=== PATIENT | male | born 1980 | race Caucasian/White ===

== ENCOUNTER 2017-03-07 16:12 | Emergency (ER) | payer OTHER ==
[2017-03-07 17:02] VITALS: BP 121/90
--- NOTE | 2017-03-07 17:57 | UC ---
UC General HPI - HPI Summary HPI Summary: Pt has been out of drug rehab since 02/25/17. Was discharged on clonodine and gabapentin for anxiety, has run out of gabapentin and does not have a PCP yet. Has been taking 900mg TID. Is sweating a lot and having trouble sleeping without medicine. - History of Current Complaint Chief Complaint: UCMedRefill Stated Complaint: MEDICINE REFILL Time Seen by Provider: 03/07/17 17:36 Hx Obtained From: Patient Onset/Duration: Gradual Onset, Lasting Days Timing: Constant Onset Severity: Mild Current Severity: Moderate Associated Signs & Symptoms: Positive: Agitation - anxious - Allergy/Home Medications Allergies/Adverse Reactions: Allergies Allergy/AdvReac Type Severity Reaction Status Date / Time Amoxicillin Allergy Unknown Verified 03/07/17 16:52 Reaction Details Azithromycin Allergy Unknown Verified 03/07/17 16:52 Reaction Details Penicillins Allergy Unknown Verified 03/07/17 16:52 Reaction Details Home Medications: Home Medications Clonidine HCl [Catapres 0.1 MG TAB] 0.1 mg PO TID 03/07/17 [History Confirmed ] PMH/Surg Hx/FS Hx/Imm Hx Cardiovascular History Of: Reports: Hypertension - Surgical History Surgical History: Yes Surgery Procedure, Year, and Place: jaw wiring - Family History Known Family History: Positive: Hypertension - Social History Alcohol Use: None Substance Use Type: None Substance Use Comment - Amount & Last Used: just got out of inpt rehab. Smoking Status (MU): Light Every Day Tobacco Smoker Amount Used/How Often: 1/2 pack/ day Household Exposure Type: Cigarettes Cessation Counseling: Patient Advised to Stop Review of Systems Constitutional: Negative Skin: Negative Eyes: Negative ENT: Negative Respiratory: Negative Cardiovascular: Negative Gastrointestinal: Negative Genitourinary: Negative Motor: Negative Neurovascular: Negative Musculoskeletal: Negative Neurological: Negative Psychological: Anxious All Other Systems Reviewed And Are Negative: Yes Physical Exam Triage Information Reviewed: Yes Appearance: Well-Appearing, No Pain Distress, Well-Nourished Vital Signs: Initial Vital Signs Temp 98.6 F 03/07/17 16:54 Pulse 75 03/07/17 16:54 Resp 16 03/07/17 16:54 BP 121/90 03/07/17 16:54 Pulse Ox 100 03/07/17 16:54 Vital Signs Reviewed: Yes Eye Exam: Normal Eyes: Positive: Conjunctiva Clear ENT Exam: Normal ENT: Positive: Normal ENT inspection, Hearing grossly normal, Pharynx normal, TMs normal Dental Exam: Normal Neck exam: Normal Respiratory Exam: Normal Respiratory: Positive: Chest non-tender, Lungs clear, Normal breath sounds, No respiratory distress Cardiovascular Exam: Normal Cardiovascular: Positive: RRR, No Murmur Musculoskeletal Exam: Normal Musculoskeletal: Positive: Strength Intact, ROM Intact Neurological Exam: Normal Neurological: Positive: Alert Psychological Exam: Normal Psychological: Positive: Normal Response To Family Skin Exam: Normal, Other - very sweaty on palms and face Course/Dx - Differential Dx - Multi-Symptom Provider Diagnoses: anxiety. medicine refill Discharge - Discharge Plan Condition: Stable Disposition: HOME Prescriptions: Gabapentin CAP(*) [Neurontin 300 CAP(*)] 900 mg PO TID #126 cap Patient Education Materials: Anxiety (ED) Referrals: Monika Pierce [employer]ATING [employer]ESS INSPECTOR [Nurse Practitioner] - Additional Instructions: If you feel like you might hurt yourself or someone else, please dial 911 or go to the nearest emergency department.
== END 2017-03-07 18:00 | disposition home or self-care (01) ==
LOC: UCEAST 16:12
DX: F41.9 Anxiety disorder, unspecified (principal); Z76.0 Encounter for issue of repeat prescription; I10 Essential (primary) hypertension; Z88.1 Allergy status to other antibiotic agents; Z88.0 Allergy status to penicillin; F17.210 Nicotine dependence, cigarettes, uncomplicated
CPT/HCPCS: 99212; G0463